=== PATIENT | female | born 1990 | race Caucasian/White ===

== ENCOUNTER 2018-02-09 14:25 | Emergency (ER) | payer SELFPAY | END 2018-02-09 15:41 | disposition home or self-care (01) | LOC: D.ER 14:25 | DX: T19.2XXA Foreign body in vulva and vagina, initial encounter (principal); X58.XXXA Exposure to other specified factors, initial encounter; Y93.89 Activity, other specified; Y92.019 Unspecified place in single-family (private) house as the place of occurrence of the external cause ==

== ENCOUNTER 2018-04-19 07:46 | Emergency (ER) | payer SELFPAY | END 2018-04-19 07:47 | disposition left against medical advice (07) | LOC: D.ER 07:46 | DX: N39.0 Urinary tract infection, site not specified (principal) ==

== ENCOUNTER 2018-07-08 00:29 | Emergency (ER) | payer SELFPAY ==
[~2018-07-08] VITALS: Ht 152.4 cm; Wt 54.5 kg
[2018-07-08 00:35] VITALS: Ht 152.4 cm; Wt 54.5 kg
[2018-07-08 01:00] VITALS: BP 142/78
== END 2018-07-08 01:00 | disposition home or self-care (01) ==
LOC: D.ER 00:29
DX: L02.31 Cutaneous abscess of buttock (principal); F17.200 Nicotine dependence, unspecified, uncomplicated

== ENCOUNTER 2018-08-10 23:29 | Emergency (ER) | payer SELFPAY ==
[~2018-08-10] VITALS: Ht 152.4 cm; Wt 56.8 kg
[2018-08-10 23:33] VITALS: Ht 152.4 cm; Wt 56.8 kg
[2018-08-11 00:16] LABS: BASOPHILS 0.1 % (0-2); EOSINOPHILS 0.2 % (0-7); HEMATOCRIT 34.5 % (36.0-48.0); HEMOGLOBIN 11.7 g/dL (12-16); IMMATURE GRANULOCYTES 0.4 % (0-5); LYMPHOCYTES 6.3 % (15-50); MCH 27.7 pg (26.0-34.0); MCHC 33.9 g/dL (31.0-37.0); MCV 81.6 fL (80.0-100.0); MEAN PLATELET VOLUME 9.3 fL (7.4-10.4); MONOCYTES 8.6 % (2-11); NEUTROPHILS 84.4 % (40-80); PLATELET COUNT 306 10x3/uL (130-400); RBC 4.23 10x6/uL (4.00-5.40); RDW 14.9 % (11.5-14.5); WBC 13.8 10x3/uL (4.8-10.8)
[2018-08-11 00:26] LABS: ALBUMIN 2.7 g/dL (3.4-5.0); ANION GAP 16.4 mmol/L (8-16); BILIRUBIN - TOTAL 0.55 mg/dL (0.2-1.3); CALCIUM 9.1 mg/dL (8.5-10.1); CARBON DIOXIDE 26.6 mmol/L (21.0-32.0); CREATININE - SERUM 1.4 mg/dL (0.6-1.3); PROTEIN - SERUM 7.7 g/dL (6.4-8.2)
[2018-08-11 01:44] LABS: APPEARANCE CLOUDY (CLEAR); BACTERIA MANY /hpf (NONE SEEN); BILIRUBIN NEGATIVE (NEGATIVE); COLOR YELLOW (YELLOW); EPITHELIAL CELLS 0-5 /hpf (0-5); GLUCOSE NEGATIVE (NEGATIVE); KETONE SMALL mg/dL (NEGATIVE); MUCUS >1+ /lpf (NONE SEEN); NITRITE POSITIVE (NEGATIVE); PROTEIN 1+ mg/dL (NEGATIVE); UROBILINOGEN NORMAL (NORMAL); WHITE CELLS - URINE 25-50 /hpf (0-5)
[2018-08-11 01:45] LABS: UDS - AMPHET POSITIVE QUAL (NEGATIVE); UDS - BARB NEGATIVE QUAL (NEGATIVE); UDS - BENZO NEGATIVE QUAL (NEGATIVE); UDS - COCAINE NEGATIVE QUAL (NEGATIVE); UDS - OPIATE NEGATIVE QUAL (NEGATIVE); UDS - PCP NEGATIVE QUAL (NEGATIVE); UDS - THC POSITIVE QUAL (NEGATIVE)
[2018-08-11] MEDS ORDERED: KEFLEX500 MG PO (02:28)
[2018-08-11 02:50] VITALS: BP 132/85
== END 2018-08-11 02:52 | disposition home or self-care (01) ==
LOC: D.ER 23:29
PROVIDERS: Family Medicine
DX: R50.9 Fever, unspecified (principal); N39.0 Urinary tract infection, site not specified; R53.1 Weakness; I10 Essential (primary) hypertension; F17.200 Nicotine dependence, unspecified, uncomplicated